=== PATIENT | female | born 2005 | race Two or more races ===

== ENCOUNTER → 2024-09-03 | Outpatient (CLI) | payer MEDICAID, SELFPAY ==
[2024-09-02 17:35] LABS: HCG Qualitative,Urine Negative
--- NOTE | 2024-09-03 | XR_ITS ---
Examination: CT chest, without intravenous contrast. Sagittal and coronal 2-D reconstructions. Exam date and time: September 03, 2024 1713 hrs. Indications: 10 mm pulmonary nodule left upper lobe on chest x-ray March 31, 2024 CTDI:vol (mGy) 6.80 DLP: (mGycm) 257 Technique: Multiple 3.0 mm axial sections of the chest to been obtained. Bone and lung density settings are obtained. Sagittal and coronal 2-D reconstructions have been obtained. Low dose protocols were performed. One or more of the following dose reduction techniques were used; automated exposure control, adjustment of the mA and/or KV according to patient size, use of iterative reconstruction technique. Findings: Artery segments are not enlarged No paratracheal tracheobronchial or bronchopulmonary adenopathy 9 mm calcified pulmonary nodule left upper lobe 4 mm pulmonary nodule right upper lobe image 175 3 mm 4 mm soft pulmonary nodules left lower lobe image 204 4 mm pulmonary nodule right lower lobe image 271 No lobar pneumonia or pulmonary edema No visualized liver or splenic lesions Contracted gallbladder No hydronephrosis Impression: Multiple pulmonary nodules as above, the largest is a calcified granuloma in the left upper lobe With this study as baseline, suggest 6 month follow-up CT chest without contrast to document stability of these multiple pulmonary nodules
== END | disposition home or self-care (01) ==
PROVIDERS: Referring Provider Nurse Practitioner Family; Visit Provider Nurse Practitioner Family
DX: R91.8 Other nonspecific abnormal finding of lung field (principal); Z32.00 Encounter for pregnancy test, result unknown
CPT/HCPCS: 71250; 81025

== ENCOUNTER → 2025-05-26 | Outpatient (CLI) | payer MEDICAID, SELFPAY ==
[2025-05-23 10:42] LABS: HCG Qualitative,Urine Negative
--- NOTE | 2025-05-26 15:30 | XR_ITS ---
Examination: CT chest, without intravenous contrast. Sagittal and coronal 2-D reconstructions. Exam date and time: May 26, 2025 1530 hours, comparison September 03, 2024 INDICATIONS: CT chest September 03, 2024 noncalcified pulmonary nodules CTDI:vol (mGy) 6.42 DLP: (mGycm) 242 Technique: Multiple 3.0 mm axial sections of the chest to been obtained. Bone and lung density settings are obtained. Sagittal and coronal 2-D reconstructions have been obtained. Low dose protocols were performed. One or more of the following dose reduction techniques were used; automated exposure control, adjustment of the mA and/or KV according to patient size, use of iterative reconstruction technique. Findings: No thoracic aortic aneurysmal dilatation Pulmonary artery segments are not enlarged. No paratracheal tracheobronchial or bronchopulmonary adenopathy. Stable bilateral pulmonary nodules No definite new pulmonary nodules No pneumonia or pulmonary edema No focal liver or splenic lesion No hydronephrosis Contracted gallbladder IMPRESSION: Stable pulmonary nodules compared with September 03, 2024, no new pulmonary nodules
== END | disposition home or self-care (01) ==
LOC: CCTX 15:18
PROVIDERS: PCP Nurse Practitioner Family; Referring Provider Nurse Practitioner Family; Visit Provider Nurse Practitioner Family
DX: R91.8 Other nonspecific abnormal finding of lung field (principal); Z32.00 Encounter for pregnancy test, result unknown
CPT/HCPCS: 71250; 81025

== ENCOUNTER 2025-06-12 18:34 | Emergency (ER) | payer MEDICAID, SELFPAY ==
[2025-06-12 18:46] VITALS: BP 112/76; PULSE 94; RESP 16; TEMP 37.9; O2SAT 97; BMI 18.8
--- NOTE | 2025-06-12 19:01 | PD.EDSKIN ---
ED Skin Abcess FB-RME/HPI General Chief complaint: Skin/Abscess/Foreign Body Stated complaint: Itchy rash all over body x 1 day Time Seen by Provider: 06/12/25 18:54 Arrival date/time: 06/12/25 18:34 20F with no significant PMH presents to ED with 1 day of generalized itchy rash. Patient denies new foods, meds, and hygiene products. Benadryl helped, but rash came back. Patient denies URI symptoms. Limitations: no limitations Related Data Previous Rx's ?Medication ?Instructions ?Recorded dicyclomine 10 mg capsule 10 mg PO Q8HR #7 caps 05/19/18 prednisone 20 mg tablet 20 mg PO BID 3 days #6 tabs 06/12/25 Allergies Allergy/AdvReac Type Severity Reaction Status Date / Time No Known Allergies Allergy Verified 06/12/25 18:37 Review of Systems Review of Systems Systems Reviewed: All systems reviewed, normal except as documented Integumentary/Breasts Skin/Breast: Reports as per HPI, Reports pruritus and Reports rash Past Medical History Past Medical History CARDIAC: Negative Congestive Heart Failure RESPIRATORY: Negative Chronic Obstructive Pulmonary Disease (COPD) GENITOURINARY: Negative Renal Disease ENDOCRINE: Negative Diabetes Mellitus Type 1 or Diabetes Mellitus Type 2 Social History SMOKING STATUS: Never smoker ED Exam General Limitations: Present no limitations General appearance: Present alert and in no apparent distress Head Head exam: Present atraumatic Neck Neck exam: Present normal inspection, full ROM and trachea midline Chest Chest inspection: Present normal inspection and symmetric chest wall rise Extremities Exam Extremities exam: Present normal inspection and full ROM Neurological Exam Neurological exam: Present alert and oriented X3 Psychiatric Psychiatric exam: Present normal affect and normal mood Skin Skin exam: Present warm, dry, intact, normal color and rash Course Quality Measures none Orders Category Date Time Status Dexamethasone Inj [Decadron Inj] Med 06/12/25 18:54 Discontinued 10 mg PO X1 ONE Vital Signs Vital signs: Vital Signs Temperature 100.2 F 06/12/25 18:46 Pulse Rate 94 06/12/25 18:46 Respiratory Rate 16 06/12/25 18:46 Blood Pressure 112/76 06/12/25 18:46 Pulse Oximetry (%) 97 06/12/25 18:46 Oxygen Delivery Method Room Air 06/12/25 18:46 O2 at 97% on RA and WNLs Skin / Abscess / Foreign Body MDM Narrative MDM Narrative:: 20F with no significant PMH presents to ED with 1 day of generalized itchy rash. Patient denies new foods, meds, and hygiene products. Benadryl helped, but rash came back. Patient denies URI symptoms. Physical exam reveals generalized rash with some being urticarial, others not. Normal WOB. Patient is afebrile, calm, and alert. Meds and probation counselor given. Patient data External records reviewed:: [facility] previous records Clinical information provided by:: patient Social determinants that could affect healthcare access:: none Patient has the following chronic illnesses:: none How is presenting disease/condition affected by chronic disease/condition?: no chronic disease Evaluation data The following diagnostics were reviewed and interpreted by me:: other (specify) (none) Lab and/or radiology exams considered but not ordered:: not ordered Interpretation Summary: n/a Medications / Prescriptions Medications or Prescriptions considered but not ordered:: ordered Medication administrations:: Medication Administration History Discontinued Medications Dexamethasone Sodium Phosphate (Dexamethasone Sod Phos Inj 10 Mg/Ml Vial) 10 mg PO X1 ONE Stop: 06/12/25 18:55 above Consultations Consultation(s) initiated? (list below): No Diagnosis Skin/Abscess Differential Diagnosis: abscess of skin or subcutaneous tissue, viral exanthem, dermatophytosis, urticaria, herpes zoster, allergic reaction to drug, cellulitis, eczema, insect bites, impetigo and contact dermatitis Most likely diagnosis given after review of the tests above:: rash and urticaria Admission Indicated Admission indicated?: not indicated Admission Request Was there a request for admission?: No Disposition Plan Disposition Plan: Discharge Discharge Attestation Discharge Attestation: The patient and all family members were given an opportunity to ask questions and understood the discharge instructions. Discharge instructions specifically effects, indications for sooner follow up or return to the emergency department, and the expected course of current diagnosis. Patient condition: Stable Discharge Plan Plan Patient Disposition: HOME (Self Care) Discharge Disposition comment: Stable Prescriptions/Referrals Prescriptions/Med Rec: New prednisone 20 mg tablet 20 mg PO BID 3 Days Qty: 6 0RF No Action dicyclomine 10 mg capsule 10 mg PO Q8HR Qty: 7 0RF Problem List Clinical Impression: Rash of entire body, Urticaria Patient/Caregiver Discharge Instructions Education Materials: ED Hives (Adult) Additional Instructions: Please follow-up with PCP within 24-48 hours and return immediately if symptoms worsen. Take OTC antihistamine as needed until symptoms resolve. Finish entire steroid course. If problem persists, can see dermatology. Print Language: Telugu Stand Alone Forms: Patient Portal Info Letter TRUMAN/TOMY Supervising Physician TRUMAN/TOMY Supervising Physician: Dr. Lopez
[2025-06-12] MEDS: DEXAMETHASONE SOD PHOS INJ 10 MG/ML VIAL PO (19:28)
== END 2025-06-12 19:38 | disposition home or self-care (01) ==
LOC: SERX 19:23
PROVIDERS: Emergency Provider Emergency Medicine; PCP Nurse Practitioner Family
DX: L50.9 Urticaria, unspecified (principal)
CPT/HCPCS: 99282; J1100